=== PATIENT | female | born 1950 | race Caucasian/White ===

== ENCOUNTER → 2016-11-07 | Outpatient (CLI) | payer MEDICARE ==
[~2016-11-07] MED LIST: BACL20TA PO; BUSP5TAB PO; CLON0.5T PO; FLUO40CA2 PO; HYDR-2672 PO; IBUP200C9 PO; LEVO50TA PO; LISI1TAB7 PO; MELO-150 PO; OMEP40CA5 PO; OXYC10TA PO; OXYC10TA32 PO; OXYC20TA34 PO; PROP60CA8 PO; TRAZ50TA15 PO
--- NOTE | 2016-11-08 00:08 | PN ---
DATE: 11/07/2016 Progress note for pain clinic. DIAGNOSES: 1. Lumbar spondylosis with lumbar degenerative disk disease. 2. Myofascial pain ____. HISTORY OF PRESENT ILLNESS: The patient is a 66-year-old female who returns for followup status post medication management with both OxyContin and hydrocodone. The patient has been on this for an extended period of time, did very well with that, reports that she has recently discontinue rather her clonazepam, feels much more alert, much more cognizant and is very pleased with this feeling. She is having some increased anxiety, being off the medicine, but feels that it is worst at this time. The patient is still somewhat more clear and indeed appears clear on her visit today. The patient reports she is much less sleepy how much less groggy and is very pleased with the progress of decreasing the clonazepam and ____. The patient reports having some pain in the low back, right shoulder and upper extremities, lower extremity, bilateral hips and knees with "aches all over" rates 2 on a scale 10 with her medication; however, the patient reports about 75-80% improvement with the medication without side effects. The patient reports no new motor or sensory deficits, no new bowel or bladder incontinence or other complaints. The patient had appropriate K-TRACS reporting to date and appropriate urinalysis to date as well. PHYSICAL EXAMINATION: VITAL SIGNS: The patient's blood pressure 145/81, pulse 68, respirations 18, temperature is 97.6 degrees Fahrenheit, height 72 inches, weighs 192 pounds. GENERAL: The patient is awake, alert, oriented, appropriate, very pleasant demeanor. HEENT: Head shows normocephalic, atraumatic. Extraocular movements are intact, symmetrical. Oral cavity is moist and pink. Dentition is intact. NECK: Shows anterior throat supple without palpable lymphadenopathy noted. Swallow reflex is symmetrical. CHEST: Shows normal on inspection. Breath sounds clear to auscultation bilaterally. HEART: Shows S1 and S2 clear. No murmurs auscultated. ABDOMEN: Soft, nontender, nondistended. No palpable organomegaly. No rebound or guarding demonstrated. BACK: Shows spine grossly midline. Normal appearing thoracic kyphosis and lumbar lordotic curvature, lumbar paraspinous muscle shows some mild tenderness to palpation in the lower lumbar distribution bilaterally and is firm, but symmetrical and normal muscle girth without radiation, without trigger points. No tenderness over the sacrum and sacroiliac regions. The patient does show good rotational motion of lumbar spine, both laterally as well as extension and flexion without significant pain reported. EXTREMITIES: Lower extremities showed deep tendon reflexes 1+ in the patellar and tendo calcaneus tendons are equal. Motor exam is strong with 5/5 dorsiflexion, extension, quadriceps and hamstring flexion and symmetrical. PLAN: Options were discussed with the patient. We will refill the patient's OxyContin as well as hydrocodone with instructions, side effects to be aware of. The patient given 2-month prescription. The patient will follow up in approximately 16 days or sooner as necessary. YINA DYER MD DR: ELVIE/malik JOB#: [id number] / [id number]
== END | disposition home or self-care (01) ==
LOC: PNCL 13:09
PROVIDERS: ATTEND Anesthesiology
DX: M51.36 Other intervertebral disc degeneration, lumbar region (principal); M47.896 Other spondylosis, lumbar region; M79.1 Myalgia
CPT/HCPCS: G0463

== ENCOUNTER → 2017-01-01 | Outpatient (CLI) | payer MEDICARE ==
--- NOTE | 2017-01-02 02:30 | PAIN ---
DATE OF SERVICE: 01/01/2017 DIAGNOSES: 1. Lumbar spondylosis with lumbar degenerative disk disease. 2. Myofascial pain. HISTORY OF PRESENT ILLNESS: The patient is a 66-year-old female who returns for followup status post medication management with both oxycodone and hydrocodone for breakthrough pain. The patient reports she had been doing fairly well with this; however, today presents with her daughter, Jayna, who has not accompanied her to her visits previously. The patient reports that she has a confession to make that she has been taking her medications higher than prescribed and more often than prescribed, also has been drinking more alcohol and this is the first knowledge that we have had of this and she is very worried as is her family that she is abusing her medications and that she is using these for emotional stress and pain besides her physical pain. The patient is somewhat embarrassed today, but she obviously is somewhat distraught and worried about the situation and would like to get some help with this. We discussed this in great detail today and will make referral for the appropriate [facility] for psychiatric help as well as behavioral pain management. The patient reports that she is not having any specific side effects, but again is very concerned that she is getting somewhat out of control with her medications as well as alcohol consumption and she and her family are very concerned about getting this corrected. The patient reports that she still has pain mostly in the hips and knees, low back, bilateral lower extremities as she has had previously, but has not followed up with her orthopedic care physician recently, although she has had good success with hip and knee joint injections in the past. The patient reports otherwise tolerating the medications well without significant change. The patient rates her pain as a 6 on a scale of 10 at its worse, and is 1-2 on a scale of 10 today, reports it as aching, radiating, off and on pain in the knee and hip more with weightbearing, but across the low back, almost constantly. The patient reports she had difficulty sleep at night because of the pain wakes her up 2-3 times at night on average, she must change positions or get out of bed to try and decrease the pain and try to get her sleep. PHYSICAL EXAMINATION: VITAL SIGNS: Today, blood pressure 120/75, pulse 84, respirations 20, temperature is 98.1 degrees Fahrenheit. Weight is 198 pounds. GENERAL: The patient is awake, alert, oriented, appropriate, very pleasant demeanor. Again, accompanied by her daughter. HEENT: Head shows normocephalic, atraumatic. The patient is wearing eyeglasses. The extraocular muscles are intact and symmetrical. Oral cavity shows mucous membranes are moist and pink. Dentition is intact. NECK: Shows anterior throat supple without palpable lymphadenopathy noted. Swallow reflex is symmetrical. CHEST: Shows normal on inspection. Breath sounds are clear to auscultation bilaterally. HEART: Shows S1 and S2 clear. ABDOMEN: Soft, nontender, nondistended. No palpable organomegaly noted. No rebound or guarding demonstrated. BACK: Shows spine grossly in the midline. Moderate tenderness to palpation throughout the upper, middle and lower distribution of the paraspinous muscles in the lumbar distribution without specific radiation. No tenderness over the spinous processes, sacrum or sacroiliac regions. EXTREMITIES: Lower extremities show deep tendon reflexes at 1+ in the patellar and tendo calcaneus tendons. Motor exam is 5/5 with dorsiflexion, extension, quadriceps and hamstring flexion. The patient has some tenderness with weightbearing ____ right hip as well as the bilateral knees, this is worse with standing ____ one leg or the other. Knee pain, right and left ____ she is standing and right hip pain with standing on the right side as well. Options were discussed with the patient and the patient's old chart was reviewed as her current medication regimen updated. Current review of systems updated today as well. We discussed further details with she and her daughter present. We have the referral made to [facility]. Also we will start to decrease the patient's narcotic analgesics on a very low tapering schedule. We will decrease her hydrocodone from 4 tablets a day to 3 tablets a day, 10 mg each. Also we will decrease OxyContin from 15 mg to 10 mg a day as well. The patient was given instructions as well as side effects to be aware with medications and will follow up in approximately 1 month as scheduled. We will make referral for [facility]. We will contact her soon to start behavioral therapy as well. YINA DYER MD DR: ELVIE/malik JOB#: [id number] / [id number]
== END | disposition home or self-care (01) ==
LOC: PNCL 12:58
PROVIDERS: ATTEND Anesthesiology
DX: M47.896 Other spondylosis, lumbar region (principal); M51.36 Other intervertebral disc degeneration, lumbar region; M79.1 Myalgia
CPT/HCPCS: G0463

== ENCOUNTER → 2017-01-31 | Outpatient (CLI) | payer MEDICARE ==
[~2017-01-31] MED LIST changes: +BUPIVACAINE MPF 0.25% 10 ML VIAL. ONE; -HYDR-2672 PO; +HYDR-2766 PO; +IOHEXOL 180 MG/ML 10 ML VIAL. ONE; -MELO-150 PO; +MELO15TA23 PO; -OXYC10TA32 PO; +OXYC10TA45 PO; +methylPREDNISolone ACETATE 80 MG/ML VIAL. ONE
--- NOTE | 2017-02-01 01:23 | PAIN ---
DATE OF SERVICE: 01/31/2017 PROGRESS NOTE FOR PAIN CLINIC DIAGNOSES: 1. Lumbar degenerative disk disease with lumbar spondylosis and myofascial pain. 2. Right hip joint pain with primary osteoarthritis, right hip. HISTORY OF PRESENT ILLNESS: The patient is a 66-year-old female who returns for followup status post medication management with reducing her medications very slowly with the help of Dr. Reza Rios at the [facility] with some behavioral techniques as well. The patient has seen him for first evaluation and I did get his office notes. They are starting in about 1-2 weeks with individual therapy sessions for her, as it was in between the general class schedules that he had offered for behavioral pain management, but they are going to make an exception and have her earlier to start working with her sooner and we appreciate that. The patient reports she feels actually better, more clarity and much more alert with the reduction in the pain medicine, even though it was a very small reduction. She still has some significant pain in the low back, right hip and knees, rates as 8 on a scale of 10 and the least is 2 on a scale of 10, aching, sharp, dull, shooting with radiating, constant, severe and somewhat unbearable pain in the hips and back. The patient reports chief complaint today is her right hip, worse with standing and walking, putting weight on it. She did have an intra-articular hip joint injection in September with [facility], which helped significantly about 80% improvement in the pain did prior to the injection. The patient reports no new motor or sensory deficits, no new bowel or bladder incontinence. She did have some very mild withdrawal symptoms with some nausea in the mornings since reducing her pain medication, but reports she is no longer watching the clock to find the next time to take her pill and she feels like she is actually more freed in her daily activities with the less medication. PHYSICAL EXAMINATION: VITAL SIGNS: Today, the patient's blood pressure 135/83, pulse 65, respirations are 18, temperature is 98.5 degrees Fahrenheit and weight is 190 pounds. GENERAL: The patient is awake, alert, oriented, appropriate, very pleasant demeanor. HEENT: Shows normocephalic, atraumatic. Extraocular movements are intact and symmetrical. Oral cavity, mucous membranes are moist and pink. Dentition is intact. NECK: Shows anterior throat supple without palpable lymphadenopathy noted. Swallow reflex is symmetrical. CHEST: Shows normal on inspection. Breath sounds are clear to auscultation bilaterally. HEART: Shows S1 and S2 clear. No murmurs auscultated. ABDOMEN: Soft, nontender, nondistended. No palpable organomegaly is noted. No rebound or guarding demonstrated. BACK: Shows spine grossly midline. Lumbar paraspinous muscle shows some moderate tenderness to palpation, but only diffusely in the lumbar distribution in the paraspinous muscles without radiation. The patient's lower extremities showed deep tendon reflexes at 1+ in the patellar and tendo calcaneus tendons. Motor exam is strong with 5/5 dorsiflexion and extension. The patient does have some significant pain with palpation over the right anterior hip and groin region and it is worse with weightbearing and standing and reports significant pain in the right groin itself. Options were discussed with the patient and the patient's old chart was reviewed as her current medication regimen updated. Current review of systems updated today as well. We will proceed with a right intra-articular hip joint injection with fluoroscopic guidance. Risks were discussed including , but not limited to, bleeding, infection, possibility of intravascular injection sequelae, spread of local anesthetic and numbness, side effects of steroid medications, exposure to fluoroscopy and poor results regarding pain control. The patient understands and wishes to proceed. The patient also will be counseled as to following up with Dr. Reza Rios. Also we will decrease the narcotic analgesics on her next visit. I will plan to have her back in about 2 weeks for intra-articular knee joint injection since she is having significant pain in the knees as well and reduce her pain medicine in approximately 4 weeks. We will maintain hydrocodone at this time of 3 a day and OxyContin at reduced dose of 10 mg q. 12 hours. We will plan on decreasing both of these again on her next visit as discussed with her and agreed upon. DIAGNOSIS: Primary osteoarthritis of the right hip joint pain. PROCEDURE: Right intra-articular hip joint injection using C-arm fluoroscopic guidance under sterile prep and drape using local anesthetic. MEDICATION INJECTED: A total of 3 mL of 0.25% bupivacaine plus 80 mg Depo-Medrol and 3 mL of Isovue for contrast. CONDITION AT DISCHARGE: Stable. The patient tolerated procedure well, had no complications. YINA DYER MD DR: Jani JOB#: [id number] / [id number]
== END | disposition home or self-care (01) ==
LOC: PNCL 12:59
PROVIDERS: ATTEND Anesthesiology
DX: M16.11 Unilateral primary osteoarthritis, right hip (principal); M51.36 Other intervertebral disc degeneration, lumbar region; M47.816 Spondylosis without myelopathy or radiculopathy, lumbar region; Z91.048 Other nonmedicinal substance allergy status
CPT/HCPCS: 20610; 77002; J1040; J3490

== ENCOUNTER → 2017-02-13 | Outpatient (CLI) | payer MEDICARE | END | disposition home or self-care (01) | LOC: PNCL 11:23 | PROVIDERS: ATTEND Anesthesiology | DX: M16.11 Unilateral primary osteoarthritis, right hip (principal); Z91.048 Other nonmedicinal substance allergy status | CPT/HCPCS: 20610; J1040; J3490 ==

== ENCOUNTER → 2017-02-27 | Outpatient (CLI) | payer MEDICARE | END | disposition home or self-care (01) | LOC: PNCL 10:59 | PROVIDERS: ATTEND Anesthesiology | DX: M17.0 Bilateral primary osteoarthritis of knee (principal); M19.012 Primary osteoarthritis, left shoulder; M19.011 Primary osteoarthritis, right shoulder | CPT/HCPCS: 20610; J1040; J3490 ==

== ENCOUNTER → 2017-03-27 | Outpatient (CLI) | payer MEDICARE ==
[~2017-03-27] MED LIST changes: -BUPIVACAINE MPF 0.25% 10 ML VIAL. ONE; -IOHEXOL 180 MG/ML 10 ML VIAL. ONE; -methylPREDNISolone ACETATE 80 MG/ML VIAL. ONE
--- NOTE | 2017-03-27 17:40 | PAIN ---
DATE OF SERVICE: 03/27/2017 PROGRESS NOTE FOR PAIN CLINIC DIAGNOSES: 1. Lumbar spondylosis with lumbar degenerative disk disease. 2. Myofascial pain. 3. Osteoarthritis with bilateral knee joint pain. HISTORY OF PRESENT ILLNESS: The patient is a 66-year-old female who returns for followup status post right and left knee joint injections. Most recently, the right knee joint with very good relief and decrease in pain about 80% with both the knees, still reports some popping sensation in the left knee, but not painful as it was. The patient reports right knee is doing much better. The patient reports her pain is worst at 8-9 on a scale of 10 and is currently a 3-4 on a scale of 10, aching, sharp, dull, tight as well as some constant pain across the low back and her pain rating is high in her low back is 9, in the knees is about 2. The patient reports she is still having some difficulty with weaning as we have her on a weaning schedule for her current narcotic analgesics, and decreased her down to oxycodone extended release once a day and hydrocodone up to 3 a day on a p.r.n. basis. The patient reports she is feeling somewhat depressed about the weaning schedule and without as much optimism as she had initially. We discussed this at length and discussed that she will have some good days and bad days and hopefully more good days in the future and she is still dedicated to decreasing the amount of medication that she is on and we will help her with this. The patient reports no new motor or sensory deficits, no new bowel or bladder incontinence or other complaints. PHYSICAL EXAMINATION: VITAL SIGNS: The patient's blood pressure 117/83, pulse 83, respirations 18, temperature 98.6 degrees Fahrenheit, height is 72 inches, weight is 191 pounds. GENERAL: The patient is awake, alert, oriented, appropriate, very pleasant demeanor. HEENT: Head shows normocephalic, atraumatic. Extraocular movements are intact and symmetrical. Oral cavity shows mucous membranes moist and pink. Dentition is intact. NECK: Shows anterior throat supple without palpable lymphadenopathy noted. Swallow reflex is symmetrical. CHEST: Shows normal on inspection. Breath sounds are clear to auscultation bilaterally. HEART: Shows S1 and S2 clear. No murmurs auscultated. ABDOMEN: Soft, nontender, nondistended. No palpable organomegaly. No rebound or guarding demonstrated. BACK: Shows spine grossly in the midline. Normal appearing thoracic kyphosis and lumbar lordotic curvature. Lumbar paraspinous muscle shows symmetrical on inspection with palpation shows some mild tenderness to moderate tenderness in the bilateral inferior aspect of the paraspinous lumbar musculature, but without radiation, only diffusely tender without trigger points. The patient shows good rotation on motion both laterally as well as extension and flexion of the lumbar spine without significant pain reported. EXTREMITIES: Lower extremities showed deep tendon reflexes, 1+ in the patellar and tendo-calcaneus tendons. Motor exam is strong with dorsiflexion and extension rated at 5/5 as is quadriceps and hamstring flexion bilaterally. The patient does show some minor tenderness with palpation over the anterior inferior aspect of the patellar tendon on the left side only, but not on the right. Shows good range of motion with both passive and active motion, good hinge function of the knee joints without ratcheting or popping auscultated with passive motion. The patient is walking with better gait without favoring the right or left lower extremity and is not using any assistive devices. Options were discussed with the patient and the patient's old chart was reviewed as her current medication regimen updated. Current review of systems updated today as well. We will hold on her narcotic analgesics, add OxyContin 10 mg once a day and hydrocodone 7.5 mg for breakthrough pain. We discussed that she will have some good days and bad days with this and overall will help her wean down further with the medications as scheduled. We will have her return in 1 month and discuss medication regimen as well as side effects to be aware of with the patient and we will plan on next month, decreasing the oxycodone to completely discontinue it and proceed with only the p.r.n. hydrocodone as she is doing fairly well with her weaning parameters thus far. The patient understands and agrees and will follow up in approximately 4 weeks, given her instructions once again with the medications. YINA DYER MD DR: ELVIE/malik JOB#: [id number] / [id number]
== END | disposition home or self-care (01) ==
LOC: PNCL 11:21
PROVIDERS: ATTEND Anesthesiology
DX: M47.896 Other spondylosis, lumbar region (principal); M51.36 Other intervertebral disc degeneration, lumbar region; M79.1 Myalgia; M17.0 Bilateral primary osteoarthritis of knee
CPT/HCPCS: G0463

== ENCOUNTER → 2017-04-24 | Outpatient (CLI) | payer MEDICARE ==
--- NOTE | 2017-04-24 14:48 | PAIN ---
DATE OF SERVICE: 04/24/2017 DIAGNOSES: 1. Lumbar degenerative disk disease, lumbar spondylosis. 2. Myofascial pain. 3. Right hip joint pain with primary osteoarthritis, also bilateral knee joint pain with primary osteoarthritis, bilateral knees. HISTORY OF PRESENT ILLNESS: The patient is a 66-year-old female who returns for followup status post medication management and weaning parameters in process. She returns today reporting fairly good progress. She is still having some anxiety over being off her pain medications and we are weaning her down very slowly. She is currently taking OxyContin 10 mg once daily and hydrocodone 7.5 mg 3 times a day. The patient reports that she was feeling fairly bad over the past couple of weeks, but over the past week or so, she has felt better mentally but she had been very inactive and she is afraid to do any increased physical activities secondary to potential causing pain. The patient reports her pain has been 8 on a scale of 10 at its worst, 3 at its least, is currently a 5 and does have an average of 5, mostly in the right hip, bilateral knees and some in the low back as well. The patient reports aching, dull, off and on though not constant as it was previously. The patient is doing very well with her weaning parameters. We will plan on weaning this further today as well. The patient reports she still has difficulty with awakening at night. She is just dealing with the weaning parameters and getting through it very slowly. The patient reports no new motor or sensory deficits, no new bowel or bladder incontinence or other complaints at this time. The patient's medication list was updated today as well. REVIEW OF SYSTEMS: Complete, full and well documented on the patient's chart, positive for those items mentioned in history of present illness. Otherwise, negative. ALLERGIES: THE PATIENT IS ALLERGIC TO NICKEL. PHYSICAL EXAMINATION: VITAL SIGNS: The patient's blood pressure is 146/87, pulse 70, respirations 18, temperature 97.8 degrees Fahrenheit. Height is 72 inches, weight is 195 pounds. GENERAL: The patient is awake, alert, oriented, appropriate, very pleasant demeanor. HEENT: Head is normocephalic, atraumatic. Extraocular movements are intact and symmetrical. Oral cavity, mucous membranes are moist and pink. Dentition is intact. NECK: Shows anterior throat supple without palpable lymphadenopathy noted. Swallow reflex is symmetrical. CHEST: Shows normal on inspection. Breath sounds are clear to auscultation bilaterally. HEART: Shows S1 and S2, clear. ABDOMEN: Obese, soft, nontender, nondistended. No palpable organomegaly. No rebound or guarding demonstrated. BACK: Shows spine grossly midline. Normal-appearing thoracic kyphosis. Lumbar lordotic curvature which is slightly flattened. Lumbar paraspinous muscle shows some moderate tenderness to palpation only in the low and mid distribution of paraspinous muscles and only diffusely without radiation. No atrophy, hypertrophy or asymmetry. The patient shows good rotation and motion of the lumbar spine, both laterally as well as extension and flexion with some very mild tenderness with extension. Lower extremities showed deep tendon reflexes 1+ in the patella and Achilles tendons. Motor exam is strong with dorsiflexion, extension, quadriceps and hamstring flexion, rate approximately 4 on a scale of 5, but equal and symmetrical bilaterally. Peripheral pulses are 1+, posterior tibia. No peripheral edema is noted. Options were discussed with the patient. The patient's old chart was reviewed as her current medication regimen and updated. Current review of systems updated as noted. We will decrease the patient's medication further and completely discontinue the OxyContin and will have only hydrocodone now at 7.5 mg up to 4 times daily on a p.r.n. basis. The patient was given instructions as well as side effects to be aware of with medication and will continue to increase her activity as tolerated. The patient and I also discussed her joining [facility] in [place] which is close to her and she is interested in doing this. I have encouraged her to strongly consider this and to join as she could use their swimming pool as well as aerobics programs and stretching and yoga classes. The patient reports she is interested in this. She was given instructions as well as side effects to be aware with the medications and will follow up in approximately 4 weeks as scheduled. YINA DYER MD DR: ELVIE/malik JOB#: [id number] / [id number]
== END | disposition home or self-care (01) ==
LOC: PNCL 10:27
PROVIDERS: ATTEND Anesthesiology
DX: M17.0 Bilateral primary osteoarthritis of knee (principal); M51.36 Other intervertebral disc degeneration, lumbar region; M16.11 Unilateral primary osteoarthritis, right hip; F41.9 Anxiety disorder, unspecified; M47.896 Other spondylosis, lumbar region
CPT/HCPCS: 99212

== ENCOUNTER → 2017-05-11 | Outpatient (CLI) | payer MEDICARE ==
[~2017-05-11] MED LIST changes: +BUPIVACAINE MPF 0.5% 10 ML VIAL for KCIC. IJ ONE; +IOHEXOL 300 MG/ML 50 ML VIAL. INT ART ONE; +LIDOCAINE 1% Multi-Dose 20 ML VIAL. ID ONE; +methylPREDNISolone ACETATE 40 MG/ML VIAL. INT ART ONE
--- NOTE | 2017-05-11 15:27 | KCIC ---
Examination: Right hip steroid injection using fluoroscopic guidance HISTORY: History of right hip pain COMPARISON: 10/02/2016 TECHNIQUE: The procedure was explained to the patient. Informed consent was obtained after explaining the risks and benefits to the patient. All questions were answered. The hip was prepped and draped in sterile fashion. Following administration of local anesthesia, a 22-gauge spinal needle was advanced into the hip joint without difficulty. Stylet was removed. After negative aspiration , 4 cc of Omnipaque 300, 2 cc of (80 mg) of Depo-Medrol and 4 cc of 0.5 percent Marcaine and 4 cc of 1 percent lidocaine was injected without difficulty. The needle was removed. No immediate complications. IMPRESSION: Successful right hip steroid injection A single spot fluoroscopic images obtained. Total fluoroscopic time 16 seconds. IMPRESSION: Successful right hip steroid injection. Electronically signed by: Delano Anderson MD (05/11/2017 3:24 PM) [id number]
== END | disposition home or self-care (01) ==
LOC: KCIC 13:09
PROVIDERS: ATTEND Orthopaedic Surgery Sports Medicine
DX: M16.11 Unilateral primary osteoarthritis, right hip (principal)
CPT/HCPCS: 20610; 77002

== ENCOUNTER → 2017-05-22 | Outpatient (CLI) | payer MEDICARE ==
[~2017-05-22] MED LIST changes: -BUPIVACAINE MPF 0.5% 10 ML VIAL for KCIC. IJ ONE; +CLON0.5T3 PO; -IOHEXOL 300 MG/ML 50 ML VIAL. INT ART ONE; -LIDOCAINE 1% Multi-Dose 20 ML VIAL. ID ONE; -methylPREDNISolone ACETATE 40 MG/ML VIAL. INT ART ONE
--- NOTE | 2017-05-22 13:08 | PAIN ---
DATE OF SERVICE: 05/22/2017 DIAGNOSES: 1. Lumbar spondylosis with lumbar degenerative disease. 2. Myofascial pain. 3. Right hip joint pain and bilateral knee joint pain with primary osteoarthritis. HISTORY OF PRESENT ILLNESS: The patient is a 66-year-old female who returns for followup status post medication management and weaning off her narcotic medications very slowly. The patient reports she has been doing slightly better, feels much more alert and awake and she is completely off her OxyContin now and is only taking the hydrocodone at 7.5 mg. We discussed taking up to 4 at least a day and she is doing this on most days, but not every day. She is having some days that are better than others; however, over the past 2 weeks she has had increased pain in her right hip. She did have an intra-articular injection through Radiology and reports only 1 day of decreased pain. She has seen her orthopedic surgeon on the 6th of this month in about 3 days. The patient reports still significant pain in the right hip well as the left knee pain and the right knee to some extent, but much worse on the left. The patient reports no new motor or sensory deficits, no new side effects, no constipation, no dizziness, drowsiness and again feels much more awake and alert with the medication decreased and with the OxyContin now discontinued. The patient reports no new motor or sensory deficits. No new changes. Still complains of pain again in the right hip and bilateral knees. The patient rates her pain in the hip and knee as 10 on a scale of 10 at its worst, 5 on average and 3-4 at its least. It is aching, sharp, dull, burning, stabbing and it can be more constant and unbearable with weightbearing and putting all of her weight on her hips or knees such as climbing stairs and standing and walking. The patient reports it still awakens her from sleep. She also has some back pain, which has been worse with standing and walking as well. PHYSICAL EXAMINATION: VITAL SIGNS: Today, blood pressure is 131/74, pulse 73, respirations 18, temperature is 98.7 degrees Fahrenheit. Height is 72 inches, weight is 199 pounds. GENERAL: The patient is awake, alert, oriented, appropriate, very pleasant demeanor. HEENT: Head shows normocephalic, atraumatic. Extraocular movements intact, symmetrical. Oral cavity: Mucous membranes moist and pink. Dentition is intact. NECK: Shows anterior throat supple without palpable lymphadenopathy noted. Swallow reflex is symmetrical. CHEST: Shows normal on inspection. Breath sounds are equal and clear bilaterally. HEART: Shows S1 and S2 clear. No murmurs auscultated. ABDOMEN: Soft, nontender, nondistended. No palpable organomegaly is noted. No rebound or guarding. BACK: Shows grossly midline spine. Normal thoracic kyphosis and some flattening of lumbar lordotic curvature with inspection. Lumbar paraspinous musculature shows symmetrical with palpation. It shows some moderate tenderness to palpation but only in the middle and lower distribution bilaterally of the paraspinous muscles diffusely without specific radiation. No tenderness over the spinous processes, sacrum or sacroiliac regions. The patient has good rotational motion of lumbar spine laterally as well as extension and flexion without increased tenderness except with extension mildly increased in the low back itself without radiation. The patient's lower extremities showed deep tendon reflexes 1+ in the patellar and tendo calcaneus tendons. Motor exam is strong with dorsiflexion, extension, quadriceps and hamstring flexion at approximately 4 on a scale of 5 on the right and 5/5 on the left. The patient reports some hip pain with external rotation of the right hip and flexion of the quadriceps on the right as well. Peripheral pulses are 1+ posterior tibial and dorsalis pedis pulses. No peripheral edema is noted in the lower extremities bilaterally. Options were discussed with the patient and the patient's old chart was reviewed and her current medication regimen was updated. Current review of systems updated today as well. We will maintain the patient's hydrocodone at 7.5 mg up to 4 times daily p.r.n. basis at this time. Again OxyContin discontinued now. We discussed increasing her activity as best tolerated. She will follow up with her orthopedic surgeon this Sunday and see what his recommendations will be as far as any further treatment for her hip and knees. Again, we discussed water therapy. The patient has not started this yet, but is interested. She would like to talk to her orthopedic surgeon as she is somewhat nervous about what may need to be done with her hips and knees as far as surgical alternatives. The patient was given instructions as well as side effects to be aware with the medication and was encouraged to increase her activity as possible and tolerated and with recommendations for orthopedist. The patient will follow up in approximately 4 weeks as scheduled. The patient again has had appropriate K-TRACS reporting today and appropriate urinalysis. We will obtain these on her next visit as well. YINA DYER MD DR: ELVIE/malik JOB#: [id number] / [id number]
== END | disposition home or self-care (01) ==
LOC: PNCL 11:36
PROVIDERS: ATTEND Anesthesiology
DX: M51.36 Other intervertebral disc degeneration, lumbar region (principal); M47.896 Other spondylosis, lumbar region; M17.0 Bilateral primary osteoarthritis of knee; M16.11 Unilateral primary osteoarthritis, right hip; F41.9 Anxiety disorder, unspecified
CPT/HCPCS: 99212

== ENCOUNTER → 2017-07-17 | Outpatient (CLI) | payer MEDICARE ==
--- NOTE | 2017-07-17 21:14 | PAIN ---
DATE OF SERVICE: 07/17/2017 DIAGNOSES: 1. Lumbar spondylosis, lumbar degenerative disk disease. 2. Myofascial pain. 3. Right hip joint pain with osteoarthritis. 4. Bilateral knee joint pain with osteoarthritis, bilateral knees. HISTORY OF PRESENT ILLNESS: The patient is a 66-year-old female who returns for followup, status post medication management. We are weaning her narcotics down with now no longer taking extended release medications and only taking hydrocodone 7.5 mg up to 3 daily. The patient reports she is doing very well and thus feels much better. She still has some significant pain in her right hip; however, sees an orthopedic surgeon tomorrow for evaluation and further recommendations. The patient reports that her pain is most significant in the right hip with walking, standing, climbing stairs, putting all the weight on her right side, is stabbing, aching and throbbing in the right hip itself; also some pain in the knees and the low back, but these are much better controlled. The patient reports her back pain is only about 3 on a scale of 10 at its worse. The hip pain; however, is at 8-9 on a scale of 10, averages about 5 for both. The patient reports that the aching is sharp, stabbing, radiating constant, becomes unbearable in the right hip at times. The patient reports no new motor or sensory deficits, no new bowel or bladder incontinence. The patient has been tolerating the medication well and reports she feels much more alert, much more bright and awake with the lower doses of medication. The patient reports it awakens her from sleep at night, usually the right hip if she is lying on her right side, but sometimes when she is lying on her left side. PHYSICAL EXAMINATION: VITAL SIGNS: The patient's blood pressure is 130/82, pulse is 88, respirations 18, temperature is 98.3 degrees Fahrenheit, height 72 inches, weighs 197 pounds. GENERAL: The patient is awake, alert, oriented, appropriate, very pleasant demeanor. HEENT: Head shows normocephalic, atraumatic. Extraocular muscles are intact and symmetrical. Oral cavity: Mucous membranes moist and pink. Dentition is intact. NECK: Shows anterior throat supple without palpable lymphadenopathy noted. Swallow reflex is symmetrical. CHEST: Normal on inspection. Breath sounds clear to auscultation bilaterally. HEART: Shows S1, S2 clear. No murmurs auscultated. ABDOMEN: Soft, nontender, nondistended. No palpable organomegaly. No rebound or guarding demonstrated. BACK: Shows spine grossly in midline with normal-appearing thoracic kyphosis and lumbar lordotic curvatures. Lumbar paraspinous muscle shows some moderate tenderness diffusely with palpation bilaterally without radiation. The patient's lower extremities show deep tendon reflexes at 1+ in the patellar, and tendo calcaneus tendons are equal. Motor exam is strong with 5/5 dorsiflexion, extension, quadriceps and hamstring flexion and symmetrical. Peripheral pulses are 1+ posterior tibial. No peripheral edema is noted. The patient shows significant pain with standing; however, on the right leg with a significant antalgic gait favoring the right lower extremity when she ambulates. Reports pain with putting all her weight on her right side as well. Also, has a positive Danilo's maneuver with external rotation of the right hip, but negative on the left. Options were discussed with the patient. The patient's old chart was reviewed as her current medication regimen and updated. Current review of systems updated today as well and we will refill the patient's medication. We will stay with 7.5 mg hydrocodone to take up to 3 a day with 90 tablets dispensed with 1-month prescription. The patient was given instruction as well as side effects to be aware of with the medication. Also, we will follow up with her orthopedic physician tomorrow and was asked for her to keep us informed as to any decision regarding surgery or other interventions and will plan on weaning her medication down further in the future depending on what may or may not be necessary with her right hip condition. YINA DYER MD DR: ELVIE/malik JOB#: [id number] / [id number]
== END | disposition home or self-care (01) ==
LOC: PNCL 10:21
PROVIDERS: ATTEND Anesthesiology
DX: M51.36 Other intervertebral disc degeneration, lumbar region (principal); M17.0 Bilateral primary osteoarthritis of knee; M16.11 Unilateral primary osteoarthritis, right hip
CPT/HCPCS: G0463

== ENCOUNTER → 2017-08-14 | Outpatient (CLI) | payer MEDICARE | END | disposition home or self-care (01) | LOC: PNCL 11:14 | DX: M51.36 Other intervertebral disc degeneration, lumbar region (principal); M47.896 Other spondylosis, lumbar region; M16.11 Unilateral primary osteoarthritis, right hip; M17.0 Bilateral primary osteoarthritis of knee; Z96.641 Presence of right artificial hip joint | CPT/HCPCS: G0463 ==

== ENCOUNTER → 2017-08-24 | Outpatient (CLI) | payer MEDICARE ==
[2017-08-24] MEDS: BUPIVACAINE MPF 0.5% 10 ML VIAL for KCIC. IJ ×2 (14:39)
[2017-08-24] MEDS: LIDOCAINE 1% Multi-Dose 20 ML VIAL. ID ×2 (14:39)
[2017-08-24] MEDS: IOHEXOL 300 MG/ML 10ML VIAL. INT ART ×2 (14:39)
[2017-08-24] MEDS: methylPREDNISolone ACETATE 40 MG/ML VIAL. INT ART ×2 (14:39)
== END | disposition home or self-care (01) ==
LOC: KCIC 12:50
DX: M16.11 Unilateral primary osteoarthritis, right hip (principal); G89.29 Other chronic pain
CPT/HCPCS: 20610; 77002; J1030; Q9967

== ENCOUNTER → 2017-09-11 | Outpatient (CLI) | payer MEDICARE | END | disposition home or self-care (01) | LOC: PNCL 11:03 | DX: M51.36 Other intervertebral disc degeneration, lumbar region (principal); M17.0 Bilateral primary osteoarthritis of knee; M16.11 Unilateral primary osteoarthritis, right hip | CPT/HCPCS: G0463 ==

== ENCOUNTER → 2017-11-06 | Outpatient (CLI) | payer MEDICARE | END | disposition home or self-care (01) | LOC: PNCL 11:20 | DX: M51.36 Other intervertebral disc degeneration, lumbar region (principal); M47.896 Other spondylosis, lumbar region; M16.11 Unilateral primary osteoarthritis, right hip; M79.1 Myalgia; Z79.891 Long term (current) use of opiate analgesic; Z79.899 Other long term (current) drug therapy | CPT/HCPCS: G0463 ==

== ENCOUNTER → 2017-12-03 | Outpatient (CLI) | payer MEDICARE ==
[2017-12-03 08:51] LABS: ADD MAN DIFF? NO
[2017-12-03 08:59] LABS: BASO # 0.1 x10^3/uL (0.0-0.2); BASO % 1 % (0-3); EOS # 0.1 x10^3/uL (0.0-0.7); EOS % 2 % (0-3); HEMATOCRIT 45.9 % (36.0-47.0); HEMOGLOBIN 15.2 g/dL (12.0-15.5); LYMPH # 2.8 x10^3/uL (1.0-4.8); LYMPH % 36 % (24-48); MEAN CORPUSCULAR HEMOGLOBIN 30 pg (25-35); MEAN CORPUSCULAR HGB CONC 33 g/dL (31-37); MEAN CORPUSCULAR VOLUME 90 fL (79-100); MONO # 0.6 x10^3/uL (0.0-1.1); MONO % 7 % (0-9); NEUT # 4.3 x10^3uL (1.8-7.7); NEUT % 55 % (31-73); PLATELET COUNT 274 x10^3/uL (140-400); RED BLOOD COUNT 5.09 x10^6/uL (3.50-5.40); RED CELL DISTRIBUTION WIDTH 13.2 % (11.5-14.5); WHITE BLOOD COUNT 7.9 x10^3/uL (4.0-11.0)
[2017-12-03 09:10] LABS: PARTIAL THROMBOPLASTIN TIME 30 SEC (24-38); PROTHROMBIN TIME PATIENT 12.9 SEC (11.7-14.0)
[2017-12-03 09:12] LABS: ALBUMIN 4.2 g/dL (3.4-5.0); ANION GAP 10 (6-14); BLOOD UREA NITROGEN 23 mg/dL (7-20); CALCIUM 9.9 mg/dL (8.5-10.1); CARBON DIOXIDE 27 mmol/L (21-32); CHLORIDE 102 mmol/L (98-107); CREATININE 1.1 mg/dL (0.6-1.0); GFR 49.7; GLUCOSE 98 mg/dL (70-99); POTASSIUM 3.3 mmol/L (3.5-5.1); SODIUM 139 mmol/L (136-145)
[2017-12-03 10:33] LABS: SEDIMENTATION RATE 6 (0-25)
[2017-12-03 14:57] LABS: BILIRUBIN,URINE SMALL (NEG); CLARITY,URINE CLOUDY; COLOR,URINE AMBER; GLUCOSE,URINE NEGATIVE (NEG); NITRITE,URINE NEGATIVE (NEG); PROTEIN,URINE 30 mg/dL (NEG-TRACE)
[2017-12-03 15:03] LABS: BACTERIA,URINE MANY /HPF (0-FEW); HYALINE CASTS, URINE MODERATE /HPF; RBC,URINE 0 /HPF (0-2); SQUAMOUS EPITHELIAL CELL,UR FEW /LPF
[2017-12-03 15:04] LABS: AMORPHOUS SEDIMENT,UR PRESENT /HPF
[2017-12-03 23:10] LABS: MRSA BY PCR Negative (Negative)
== END | disposition home or self-care (01) ==
LOC: SURGPAT 13:10
DX: Z01.818 Encounter for other preprocedural examination (principal); I10 Essential (primary) hypertension; M41.84 Other forms of scoliosis, thoracic region; Z79.899 Other long term (current) drug therapy
CPT/HCPCS: 36415; 71046; 80048; 81001; 82040; 85025; 85610; 85651; 85730; 87086; 87641; 93005

== ENCOUNTER → 2017-12-04 | Outpatient (CLI) | payer MEDICARE | END | disposition home or self-care (01) | LOC: PNCL 11:25 | DX: M47.816 Spondylosis without myelopathy or radiculopathy, lumbar region (principal); M47.896 Other spondylosis, lumbar region; M16.11 Unilateral primary osteoarthritis, right hip | CPT/HCPCS: G0463 ==

== ENCOUNTER → 2017-12-14 | Outpatient (CLI) | payer MEDICARE ==
[2017-12-14 16:03] LABS: BILIRUBIN,URINE SMALL (NEG); CLARITY,URINE CLEAR; COLOR,URINE AMBER; GLUCOSE,URINE NEGATIVE (NEG); NITRITE,URINE NEGATIVE (NEG); PH,URINE 5.5; PROTEIN,URINE NEGATIVE (NEG-TRACE)
[2017-12-14 16:33] LABS: BACTERIA,URINE FEW /HPF (0-FEW); RBC,URINE 0 /HPF (0-2); SQUAMOUS EPITHELIAL CELL,UR MOD /LPF; WBC,URINE 0 /HPF (0-4)
[2017-12-14 16:34] LABS: HYALINE CASTS, URINE FEW /HPF
== END | disposition home or self-care (01) ==
LOC: LAB 14:48
DX: N39.0 Urinary tract infection, site not specified (principal)
CPT/HCPCS: 81001

== ENCOUNTER → 2017-12-20 | Outpatient (CLI) | payer MEDICARE | END | disposition home or self-care (01) | LOC: ECHO 12:01 | DX: Z01.810 Encounter for preprocedural cardiovascular examination (principal) | CPT/HCPCS: 93306 ==

== ENCOUNTER 2017-12-31 09:26 | Inpatient (IN) | payer MEDICARE ==
[2017-12-24] MEDS: MORPHINE SULFATE 5 MG, KETOROLAC 30 MG, ROPIVacaine 0.5% PF 60 ML, EPINEPHrine 0.5 MG i... INT ART (06:00)
[2017-12-24] MEDS: TRANEXAMIC ACID 1,000 MG in IV NS 50ML -- 2ND BAG INJ (11:45)
[2017-12-24] MEDS: TRANEXAMIC ACID 1,000 MG in IV NS 50ML -- 1ST BAG INJ (11:45)
[2017-12-31] MEDS: TRANEXAMIC ACID 1,000 MG in IV NS 50ML -- 1ST BAG INJ (06:00)
[2017-12-31] MEDS: TV=100ml MORPHINE 5 MG, KETOROLAC 30 MG, ROPIVacaine 0.5% PF 60 ML, EPINEPH... INT ART (06:00)
[2017-12-31] MEDS: TRANEXAMIC ACID 1,000 MG in IV NS 50ML -- 2ND BAG INJ (08:00)
[~2017-12-31 09:26] MED LIST changes: -BACL20TA PO; -BUSP5TAB PO; -CLON0.5T PO; -CLON0.5T3 PO; -FLUO40CA2 PO; -HYDR-2766 PO; +HYDROcodone/APAP 7.5/325MG 1 TAB TABLET PO; -IBUP200C9 PO; +IV RINGERS,LACTATED 1000ML 1,000 ML IV; -LEVO50TA PO; +LIDOCAINE 1% PF 2 ML VIAL. ID; -LISI1TAB7 PO; -MELO15TA23 PO; +MELOXICAM 7.5 MG TABLET PO; +MORPHINE SULFATE 4 MG/ML DISP.SYRIN. IV; -OMEP40CA5 PO; +ONDANSETRON PF 4 MG/2 ML VIAL. IV; -OXYC10TA PO; -OXYC10TA45 PO; -OXYC20TA34 PO; +PROCHLORPERAZINE 10 MG/2 ML VIAL. IV; -PROP60CA8 PO; -TRAZ50TA15 PO; +fentaNYL PF VIAL 100 MCG/2 ML VIAL IV
[2017-12-31] MEDS: IV RINGERS,LACTATED 1000ML 1,000 ML IV (10:23)
[2017-12-31] MEDS: HYDROcodone/APAP 7.5/325MG 1 TAB TABLET PO ×2 (10:29→18:24)
[2017-12-31] MEDS: MELOXICAM 7.5 MG TABLET PO (10:29)
[2017-12-31] MEDS ORDERED: MORPHINE SULFATE 4 MG/ML DISP.SYRIN. IV ×3 (10:45)
[2017-12-31] MEDS ORDERED: ACETAMINOPHEN 325 MG TABLET. PO (10:45)
[2017-12-31] MEDS ORDERED: oxyCODONE/APAP 7.5/325 1 TAB TABLET PO (10:45)
[2017-12-31] MEDS ORDERED: 0.9 % SODIUM CHLORIDE 10 ML DISP.SYRIN. IV (10:45)
[2017-12-31] MEDS ORDERED: PROCHLORPERAZINE 5 MG TABLET. PO (10:45)
[2017-12-31] MEDS ORDERED: CALCIUM CARBONATE 500 MG TAB.CHEW PO (10:45)
[2017-12-31] MEDS ORDERED: PROCHLORPERAZINE 10 MG/2 ML VIAL. IV (10:45)
[2017-12-31] MEDS ORDERED: diphenhydrAMINE 50 MG/ML VIAL IV (10:45)
[2017-12-31] MEDS ORDERED: ZOLPIDEM 5 MG TABLET. PO (10:45)
[2017-12-31] MEDS ORDERED: fentaNYL PF VIAL 100 MCG/2 ML VIAL IV ×2 (10:45)
[2017-12-31] MEDS ORDERED: DEXTROSE 50% 25 GM / 50ML DISP.SYRIN. IV (10:45)
[2017-12-31] MEDS ORDERED: MORPHINE SULFATE 10 MG/ML VIAL. IV (10:45)
[2017-12-31] MEDS ORDERED: METOCLOPRAMIDE HCL 10 MG/2 ML VIAL. IV (10:45)
[2017-12-31 10:55] LABS: ALBUMIN 4.6 g/dL (3.4-5.0); ALBUMIN/GLOBULIN RATIO 1.7 (1.0-1.7); ALK PHOS 72 U/L (46-116); ALT (SGPT) 19 U/L (14-59); ANION GAP 10 (6-14); AST (SGOT) 9 U/L (15-37); BLOOD UREA NITROGEN 28 mg/dL (7-20); BUN/CREATININE RATIO 31 (6-20); CALCIUM 9.4 mg/dL (8.5-10.1); CARBON DIOXIDE 29 mmol/L (21-32); CHLORIDE 103 mmol/L (98-107); CREATININE 0.9 mg/dL (0.6-1.0); GFR 62.6; GLUCOSE 93 mg/dL (70-99); SODIUM 142 mmol/L (136-145); TOTAL BILIRUBIN 0.6 mg/dL (0.2-1.0); TOTAL PROTEIN 7.3 g/dL (6.4-8.2)
[2017-12-31] MEDS: MORPHINE SULFATE 5 MG, KETOROLAC 30 MG, ROPIVacaine 0.5% PF 60 ML, EPINEPHrine 0.5 MG i... INT ART (11:52)
[2017-12-31] MEDS ORDERED: ePHEDrine PF IN SALINE 50 MG/5 ML DISP.SYRIN IV (12:16)
[2017-12-31] MEDS ORDERED: PHENYLEPHRINE in 0.9% NACL PF 1 MG/10 ML SYRINGE. IV (12:39)
[2017-12-31] MEDS ORDERED: fentaNYL PF VIAL 100 MCG/2 ML VIAL (12:50)
[2017-12-31] MEDS: fentaNYL PF VIAL 100 MCG/2 ML VIAL IV (14:23)
[2017-12-31] MEDS ORDERED: PNEUMOCOCCAL VAX SCREEN BY RX. MC (16:00)
[2017-12-31] MEDS: FERROUS SULFATE 325 MG TABLET. PO (16:42)
[2017-12-31] MEDS: WARFARIN 7.5 MG TABLET. PO (16:43)
[2017-12-31] MEDS ORDERED: clonazePAM 0.5 MG TABLET PO (17:30)
[2017-12-31] MEDS: IV DEXTROSE 5 %-0.45 % NACL 1,000 ML IV (20:38)
[2017-12-31] MEDS: CELECOXIB 200 MG CAPSULE. PO (20:45)
[2017-12-31] MEDS: traZODone 100 MG TABLET. PO (20:46)
[2017-12-31] MEDS ORDERED: PNEUMOC CONJ VACC 23-VALENT 0.5 ML VIAL. VAX IM (21:00)
[2018-01-01] MEDS: clonazePAM 0.5 MG TABLET PO (02:23)
[2018-01-01] MEDS: IV DEXTROSE 5 %-0.45 % NACL 1,000 ML IV ×3 (02:23→16:38)
[2018-01-01] MEDS: HYDROcodone/APAP 10/325 1 TAB TABLET PO ×3 (04:51→09:36)
[2018-01-01 05:18] LABS: HEMATOCRIT 37.8 % (36.0-47.0); HEMOGLOBIN 12.8 g/dL (12.0-15.5); MEAN CORPUSCULAR HEMOGLOBIN 31 pg (25-35); MEAN CORPUSCULAR HGB CONC 34 g/dL (31-37); MEAN CORPUSCULAR VOLUME 90 fL (79-100); PLATELET COUNT 213 x10^3/uL (140-400); RED CELL DISTRIBUTION WIDTH 13.2 % (11.5-14.5); WHITE BLOOD COUNT 15.8 x10^3/uL (4.0-11.0)
[2018-01-01] MEDS ORDERED: MAGNESIUM HYDROXIDE 2,400 MG/30 ML ORAL.SUSP. PO (06:00)
[2018-01-01] MEDS: PANTOPRAZOLE 40 MG TABLET.DR. PO (06:57)
[2018-01-01] MEDS: LEVOTHYROXINE 50 MCG TABLET PO (06:57)
[2018-01-01] MEDS: FLUoxetine HCL 20 MG CAPSULE PO (08:15)
[2018-01-01] MEDS: MULTIVITAMIN with MINERAL TABLET. PO (08:15)
[2018-01-01] MEDS: CELECOXIB 200 MG CAPSULE. PO ×2 (08:15→20:44)
[2018-01-01] MEDS: SENNOSIDES/DOCUSATE 8.6/50MG TABLET. PO (08:16)
[2018-01-01] MEDS: FERROUS SULFATE 325 MG TABLET. PO ×2 (08:16→17:45)
[2018-01-01] MEDS: CHOLECALCIFEROL (VITAMIN D3) 1,000 UNIT TABLET PO (08:16)
[2018-01-01] MEDS: PROPRANOLOL ER 60 MG CAP.SA.24H. PO (09:00)
[2018-01-01] MEDS: HYDROcodone/APAP 7.5/325MG 1 TAB TABLET PO (12:43)
[2018-01-01] MEDS: oxyCODONE/APAP 5/325 1 TAB TABLET PO (14:46)
[2018-01-01] MEDS ORDERED: BISACODYL 10 MG SUPP.RECT. PR (16:00)
[2018-01-01] MEDS: WARFARIN 5 MG TABLET. PO (17:44)
[2018-01-01] MEDS: traZODone 100 MG TABLET. PO (20:44)
[2018-01-02] MEDS: traMADol 50 MG TABLET PO ×3 (00:59→11:04)
[2018-01-02] MEDS: IV DEXTROSE 5 %-0.45 % NACL 1,000 ML IV (02:38)
[2018-01-02 04:46] LABS: HEMATOCRIT 30.5 % (36.0-47.0); HEMOGLOBIN 10.7 g/dL (12.0-15.5); MEAN CORPUSCULAR HGB CONC 35 g/dL (31-37)
[2018-01-02 05:03] LABS: INR 1.4 (0.8-1.1); PROTHROMBIN TIME PATIENT 16.4 SEC (11.7-14.0)
[2018-01-02] MEDS: LEVOTHYROXINE 50 MCG TABLET PO (07:00)
[2018-01-02] MEDS: PANTOPRAZOLE 40 MG TABLET.DR. PO (07:28)
[2018-01-02] MEDS: CHOLECALCIFEROL (VITAMIN D3) 1,000 UNIT TABLET PO (08:14)
[2018-01-02] MEDS: SENNOSIDES/DOCUSATE 8.6/50MG TABLET. PO (08:15)
[2018-01-02] MEDS: MULTIVITAMIN with MINERAL TABLET. PO (08:15)
[2018-01-02] MEDS: CELECOXIB 200 MG CAPSULE. PO ×2 (08:15→21:01)
[2018-01-02] MEDS: FLUoxetine HCL 20 MG CAPSULE PO (08:15)
[2018-01-02] MEDS: FERROUS SULFATE 325 MG TABLET. PO ×2 (08:15→16:40)
[2018-01-02] MEDS: HYDROcodone/APAP 7.5/325MG 1 TAB TABLET PO (08:16)
[2018-01-02] MEDS: HYDROcodone/APAP 10/325 1 TAB TABLET PO (08:20)
[2018-01-02] MEDS: PROPRANOLOL ER 60 MG CAP.SA.24H. PO (08:22)
[2018-01-02] MEDS: oxyCODONE/APAP 5/325 1 TAB TABLET PO ×3 (12:28→20:37)
[2018-01-02] MEDS: WARFARIN 5 MG TABLET. PO (16:40)
[2018-01-02] MEDS: traZODone 100 MG TABLET. PO (21:01)
[2018-01-03] MEDS: oxyCODONE/APAP 5/325 1 TAB TABLET PO ×4 (02:48→15:02)
[2018-01-03 06:14] LABS: HEMATOCRIT 30.5 % (36.0-47.0); HEMOGLOBIN 10.5 g/dL (12.0-15.5); MEAN CORPUSCULAR HGB CONC 35 g/dL (31-37)
[2018-01-03 06:24] LABS: INR 1.5 (0.8-1.1); PROTHROMBIN TIME PATIENT 17.3 SEC (11.7-14.0)
[2018-01-03] MEDS: PANTOPRAZOLE 40 MG TABLET.DR. PO (07:01)
[2018-01-03] MEDS: LEVOTHYROXINE 50 MCG TABLET PO (07:01)
[2018-01-03] MEDS: FERROUS SULFATE 325 MG TABLET. PO (07:57)
[2018-01-03] MEDS: CELECOXIB 200 MG CAPSULE. PO (08:35)
[2018-01-03] MEDS: PROPRANOLOL ER 60 MG CAP.SA.24H. PO (08:36)
[2018-01-03] MEDS: FLUoxetine HCL 20 MG CAPSULE PO (08:36)
[2018-01-03] MEDS: SENNOSIDES/DOCUSATE 8.6/50MG TABLET. PO (08:36)
[2018-01-03] MEDS: MULTIVITAMIN with MINERAL TABLET. PO (08:36)
[2018-01-03] MEDS: CHOLECALCIFEROL (VITAMIN D3) 1,000 UNIT TABLET PO (08:36)
[2018-01-03] MEDS: WARFARIN 5 MG TABLET. PO (14:59)
== END 2018-01-03 15:10 | DRG 470 ==
LOC: OPSVCIP 09:26 → 4 SOUTHEST 14:45
PROC: 0SR90JZ Replacement of Right Hip Joint with Synthetic Substitute, Open Approach (ICD-10-PCS; principal; 2017-12-31 11:27)
DX: M16.11 Unilateral primary osteoarthritis, right hip (principal); I10 Essential (primary) hypertension; Z90.710 Acquired absence of both cervix and uterus
CPT/HCPCS: 36415; 72170; 80053; 85014; 85018; 85027; 85610; 86850; 86900; 86901; 88304; 88311; 97116-GP; 97150-GP; 97162-GP; 97166-GO; 97535-GO; 99406; A7015; C1713; J0171; J0690; J1885; J2270; J2370; J2795; J3010; J7030; J7120

== ENCOUNTER → 2018-02-15 | Outpatient (CLI) | payer MEDICARE | END | disposition home or self-care (01) | LOC: PNCL 10:27 | DX: M51.36 Other intervertebral disc degeneration, lumbar region (principal); M47.896 Other spondylosis, lumbar region; M17.0 Bilateral primary osteoarthritis of knee; M79.1 Myalgia; M25.551 Pain in right hip; I10 Essential (primary) hypertension | CPT/HCPCS: G0463 ==

== ENCOUNTER → 2018-04-15 | Outpatient (CLI) | payer MEDICARE ==
[2018-01-03 08:38] VITALS: BP 110/62
[~2018-04-15] MED LIST changes: +BACL20TA PO; +BUSP5TAB PO; +CALC-53 PO; +CHOL100013 PO; +CLON0.5T PO; +CLON0.5T11 PO; +CYCL10TA2 PO; +FLUO40CA2 PO; +HYDR-2762 PO; +HYDR-2766 PO; -HYDROcodone/APAP 7.5/325MG 1 TAB TABLET PO; +IBUP200C9 PO; -IV RINGERS,LACTATED 1000ML 1,000 ML IV; +LEVO50TA PO; -LIDOCAINE 1% PF 2 ML VIAL. ID; +LISI1TAB7 PO; +MELO15TA23 PO; -MELOXICAM 7.5 MG TABLET PO; -MORPHINE SULFATE 4 MG/ML DISP.SYRIN. IV; +MULT-460 PO; +OMEP40CA5 PO; -ONDANSETRON PF 4 MG/2 ML VIAL. IV; +OXYC10TA PO; +OXYC10TA45 PO; +OXYC20TA34 PO; -PROCHLORPERAZINE 10 MG/2 ML VIAL. IV; +PROP60CA8 PO; +TRAZ-85 PO; -fentaNYL PF VIAL 100 MCG/2 ML VIAL IV
--- NOTE | 2018-04-15 15:18 | PAIN ---
DATE OF SERVICE: 04/15/2018 DIAGNOSES: 1. Lumbar degenerative disk disease, lumbar spondylosis. 2. Myofascial pain. 3. Bilateral knee joint pain with osteoarthritis, primarily of the bilateral knees. HISTORY OF PRESENT ILLNESS: The patient is a 67-year-old female who returns for followup status post medication management with hydrocodone. She has gotten through a recent right hip replacement, has done very well. The patient reports pain in her hip is completely gone, still has significant pain in bilateral knees as well as in the low back, but it is somewhat manageable with her hydrocodone. We discussed weaning her down with this in the past and when she is done with her hip surgery and this is past, now with good rehabilitation, good recovery and good results. We will decrease her pain medication to 5 mg from 7.5 at this time, up to 3 a day only. The patient reports her pain in her low back and her knees is a 9 on a scale of 10 at its average, at its worst, at its least, and is a 9 today. The patient reports it is aching and sharp, worse with walking, standing and weightbearing, wakes her from sleep about every 4 hours or so, but mainly with her low back, not the knees. The patient reports that she can reposition or take her pain medication and get back to sleep. The patient reports no new motor or sensory deficits, no new bowel or bladder incontinence or other complaints. PHYSICAL EXAMINATION: VITAL SIGNS: The patient's blood pressure 139/70, pulse 77, respirations 18, temperature 98.2 degrees Fahrenheit. Height is 6 feet, weight is 202 pounds. GENERAL: The patient is awake, alert, oriented, appropriate, very pleasant demeanor. HEENT: Head shows normocephalic, atraumatic. Extraocular movements intact and symmetrical. Oral cavity: Mucous membranes moist and pink. Dentition is intact. NECK: Shows anterior throat supple without palpable lymphadenopathy noted. Swallow reflex symmetrical. CHEST: Shows normal with inspection. Breath sounds clear to auscultation bilaterally. HEART: Shows S1, S2 clear. No murmurs auscultated. ABDOMEN: Soft, nontender, nondistended. No palpable organomegaly. No rebound or guarding demonstrated. BACK: Shows spine grossly in the midline, normal-appearing cervical lordotic curvature, thoracic kyphotic curvature, and lumbar lordotic curvature. Lumbar paraspinous muscle shows symmetrical on inspection, on palpation shows some [id number] tenderness bilaterally, but only diffusely in the middle and lower distribution without radiation. No tenderness over the sacrum or sacroiliac regions. The patient has good rotational motion of the lumbar spine both laterally as well as extension and flexion without difficulty. EXTREMITIES: Lower extremities show deep tendon reflexes at 1+ in the patellar and tendo-calcaneus tendons. Motor exam is strong with 5/5 dorsiflexion and extension. Peripheral pulses are 1+ posterior tibial bilaterally. No peripheral edema is noted. PLAN: Options were discussed with the patient. The patient's old chart was reviewed, her current medications were reviewed and updated and review of systems is updated today as well. We will again change her medication from 7.5 mg hydrocodone to 5 mg with up to 3 tablets a day as needed. The patient was given instruction as well as side effects to be aware of with the medication and will follow up in approximately 2 months, was given a 2-month prescription. The patient has had appropriate K-TRACS reporting as well as appropriate urinalyses to date. We will have a urinalysis taken again today as routine screening. The patient will follow up as scheduled or sooner if necessary. YINA DYER MD DR: ELVIE/malik JOB#: [id number] / [id number]
== END | disposition home or self-care (01) ==
LOC: PNCL 11:20
PROVIDERS: ATTEND Anesthesiology
DX: M51.36 Other intervertebral disc degeneration, lumbar region (principal); M47.896 Other spondylosis, lumbar region; M17.0 Bilateral primary osteoarthritis of knee; M79.1 Myalgia; I10 Essential (primary) hypertension; M19.011 Primary osteoarthritis, right shoulder; M19.012 Primary osteoarthritis, left shoulder; Z85.3 Personal history of malignant neoplasm of breast; Z96.641 Presence of right artificial hip joint; Z90.710 Acquired absence of both cervix and uterus; Z79.899 Other long term (current) drug therapy
CPT/HCPCS: G0463

== ENCOUNTER → 2018-06-13 | Outpatient (CLI) | payer MEDICARE ==
[2018-01-03 08:38] VITALS: BP 110/62
[~2018-06-13] MED LIST changes: +HYDR-2758 PO
--- NOTE | 2018-06-13 17:22 | PAIN ---
DATE OF SERVICE: 06/13/2018 PROGRESS NOTE FOR PAIN CLINIC DIAGNOSES: 1. Lumbar degenerative disk disease with lumbar spondylosis. 2. Myofascial pain. 3. Right hip pain with osteoarthritis. 4. Bilateral knee joint pain with osteoarthritis of the bilateral knees. HISTORY OF PRESENT ILLNESS: The patient is a 67-year-old female who returns for followup status post medication management with hydrocodone. We are weaning her down very slowly, from 7.5 mg to 5 mg in the last 2 months. The patient reports she is doing fairly well, has been reports she is stable, but still significant pain in bilateral knees, primarily left greater than the right. The patient reports also some low back pain with some pain radiating to the left leg, posterior lateral and anterior thigh. The patient reports it is only coming for the past week or so, but the pain in the knees is her chief complaint. The patient reports the pain is 7-8 on a scale of 10 at its worse, 5 on average and 3 at its least and is a 5 today. The patient reports it is aching, sharp, shooting occasionally severe, which is with walking and weightbearing. The patient has recently had right hip replacement, is doing very well and reports her hip is almost completely pain free on the right side. The patient reports no new motor or sensory deficits, no new bowel or bladder incontinence or other complaints. She is sleeping well at night. For most times not awaken from the pain, but some anxiety she has does keep her awake. PHYSICAL EXAMINATION: VITAL SIGNS: The patient's blood pressure 148/88, pulse 69, respirations 16, temperature 98.9 degrees Fahrenheit. Height is 72 inches, weight is 202 pounds. GENERAL: The patient is awake, alert, oriented, appropriate, very pleasant demeanor. HEENT: Head is normocephalic, atraumatic. Extraocular muscles are intact and symmetrical. Oral cavity: Mucous membranes moist and pink. Dentition is intact. NECK: Shows anterior throat supple without palpable lymphadenopathy noted. Swallow reflex symmetrical. CHEST: Shows normal with inspection. Breath sounds clear to auscultation bilaterally. HEART: Shows S1, S2 clear. No murmurs auscultated. ABDOMEN: Soft, nontender, nondistended. No palpable organomegaly. There is no rebound or guarding demonstrated. BACK: Shows spine grossly in the midline. Normal appearing thoracic kyphosis and lumbar lordotic curvature. Lumbar paraspinous musculature shows some mild tenderness only diffusely in the low lumbar distribution without radiation. No tenderness over the sacrum or sacroiliac regions. The patient has good rotational motion of lumbar spine, both laterally as well as extension and flexion without significant difficulty. EXTREMITIES: The patient's lower extremities show deep tendon reflexes at 1+ in the patellar and tendo calcaneus tendons. Motor exam is strong with 5/5 dorsiflexion and extension and equal. The patient's knee shows good hinge motion bilaterally without significant tenderness with palpation over the patella, medial and lateral collateral ligaments. No shelf sign or instability demonstrated on exam today. The patient is walking with a slight limp, does appear to favor the left lower extremity. She reports pain in the knees with weightbearing. PLAN: Options were discussed with the patient. The patient's old chart was reviewed as her current medication regimen updated. Current review of systems updated today as well. We will refill the patient's hydrocodone at 5 mg up to 3 tablets daily with instructions, side effects to be aware of. The patient has had appropriate K-TRACS reporting as well as appropriate urinalysis to date. We will refill this for a 2-month period with plans to wean further in the future. We will recommend a followup with her orthopedic surgeon regarding her knee pain as well, now that her hip is doing much better on the right side. The patient will make this appointment on her own per her request and will follow up in approximately 2 months or sooner as necessary. YINA DYER MD DR: ELVIE/malik JOB#: [id number] / [id number]
== END | disposition home or self-care (01) ==
LOC: PNCL 08:01
PROVIDERS: ATTEND Anesthesiology
DX: M51.36 Other intervertebral disc degeneration, lumbar region (principal); M47.896 Other spondylosis, lumbar region; M79.18 Myalgia, other site; M16.11 Unilateral primary osteoarthritis, right hip; M17.0 Bilateral primary osteoarthritis of knee
CPT/HCPCS: G0463